=== PATIENT | female | born 1975 | race Caucasian/White ===

== ENCOUNTER 2024-05-14 09:48 | Day surgery (SDC) | payer OTHER ==
[~2024-05-14] VITALS: Ht 160 cm; Wt 70.3 kg
[2024-05-14] MEDS ORDERED: fentaNYL citrate 0.05 MG/ML VIAL ONE (13:25)
[2024-05-14] MEDS: fentaNYL citrate 0.05 MG/ML VIAL IVP ONE (16:10)
[2024-05-14] MEDS: LIDOCAINE 2% 100 MG/5 ML UJET TP ONE (16:26)
== END 2024-05-14 18:04 | disposition home or self-care (01) ==
LOC: MDS 09:48 → MMU 09:49 → MDS 18:04
PROVIDERS: ATTEND Internal Medicine Gastroenterology
DX: Z12.11 Encounter for screening for malignant neoplasm of colon (principal); K63.5 Polyp of colon; K57.30 Diverticulosis of large intestine without perforation or abscess without bleeding
CPT/HCPCS: 45380; J3010